=== PATIENT | female | born 1960 | race Caucasian/White ===

== ENCOUNTER 2023-06-01 15:45 | Emergency (ER) | payer OTHER ==
[2023-06-01 17:07] LABS: INFLUENZA A NAA NEGATIVE (NEGATIVE); INFLUENZA B NAA NEGATIVE (NEGATIVE); RESPIRATORY SYNCYTIAL VIR NAA NEGATIVE (NEGATIVE)
[2023-06-01 17:08] LABS: CORONAVIRUS COVID-19 NAA POSITIVE (NEGATIVE)
== END 2023-06-01 18:10 | disposition home or self-care (01) ==
LOC: JP.ED 15:45
DX: U07.1 COVID-19 (principal); J20.8 Acute bronchitis due to other specified organisms; E03.9 Hypothyroidism, unspecified; Z88.1 Allergy status to other antibiotic agents; Z90.49 Acquired absence of other specified parts of digestive tract; Z79.899 Other long term (current) drug therapy
CPT/HCPCS: 0241U; 99284